=== PATIENT | male | born 1980 | race Two or more races ===

== ENCOUNTER 2025-08-13 11:56 | Inpatient (IN) | payer OTHER ==
[~2025-08-13] VITALS: Ht 180.3 cm; Wt 144.2 kg
--- NOTE | 2025-08-13 14:19 | ED.PDOC ---
GI ASSESSMENT HPI Comments 45-year-old male who comes in with chief complaint of left lower quadrant pain for approximately two days. The patient states that the pain is a 10/10. He states that he has had chronic ulcerative colitis but this flare-up has been the worse. 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 He is having some vomiting and states that he is also having diarrhea with blood in his stool. Chief Complaint: Abdominal Pain Time Seen by MD: 12:02 Primary Care Provider: ? Reviewed Notes: Nurses Notes, Medications, Allergies (NKDA) Allergies: Coded Allergies: NO KNOWN ALLERGIES (Unverified , 07/30/24) Information Source: Patient Mode of Arrival: Ambulatory Timing: Days Duration: Since onset Prehospital treatment: None Quality: Cramping, Stabbing Vomitus: Bilious Stool: Blood Streaked, Watery Severity: Moderate Recent: None Recent Hx of: None Pain Location: LUQ, LLQ Modifying Factors: Nothing Associated sign and symptoms: Nausea, Vomiting, Diarrhea, Abdominal Pain Past Medical History PAST MEDICAL HISTORY: PE Past Medical History (Other): CARLY, protein C deficiency Surgical History: Appendectomy Surgical History (Other): Bilateral hip surgeries, right knee surgery Family History Family History: Unknown Social History Smoker: Non-Smoker Alcohol: Denies ETOH Use Drugs: Denies Drug Use Lives In: Home Constitutional: reports: chills; denies: diaphoresis, fatigue, fever, malaise, sweats, weakness, others EENTM: denies: blurred vision, double vision, ear bleeding, ear discharge, ear drainage, ear pain, ear ringing, eye pain, eye redness, hearing loss, mouth pain, mouth swelling, nasal discharge, nose bleeding, nose congestion, nose pain, photophobia, tearing, throat pain, throat swelling, voice changes, others Respiratory: denies: cough, hemoptysis, orthopnea, SOB at rest, shortness of breath, SOB with excertion, stridor, wheezing, others Cardiovascular: denies: chest pain, dizzy spells, diaphoresis, Dyspnea on exertion, edema, irregular heart beat, left arm pain, lightheadedness, palpitations, PND, syncope, others Gastrointestinal: reports: abdominal pain, blood streaked bowels, diarrhea, nausea, vomiting; denies: abdomen distended, constipated, dysphagia, difficulty swallowing, hematemesis, melena, poor appetite, poor fluid intake, rectal bleeding, rectal pain, others Genitourinary: denies: burning, dysuria, flank pain, frequency, hematuria, incontinence, penile discharge, penile sore, pain, testicle pain, testicle sw elling, urgency, others Neurological: denies: dizziness, fainting, headache, left sided numbness, left sided weakness, numbness, paresthesia, pre-existing deficit, right sided numbness, right sided weakness, seizure, speech problems, tingling, tremors, weakness, others Musculoskeletal: denies: back pain, gout, joint pain, joint swelling, muscle pain, muscle stiffness, neck pain, others Integumetry: denies: bruises, change in color, change in hair/nails, dryness, laceration, lesions, lumps, rash, wounds, others Allergic/Immunocompromised: denies: Difficulty Healing, Frequent Infections, Hives, Itching, others Hematologic/Lymphatic: denies: anemia, blood clots, easy bleeding, easy bruising, swollen glands, others Endocrine: denies: excessive hunger, excessive sweating, excessive thirst, excessive urination, flushing, intolerance to cold, intolerance to heat, unexplained weight gain, unexplained weight loss, others Psychiatric: denies: anxiety, bipolar disorder, depression, hopeless, panic disorder, schizophrenia, sleepless, suicidal, others Physical Exam General Appearance: Moderate Distress HEENT: Normal ENT Inspection, Pharynx Normal, TMs Normal Neck: Full Range of Motion, Non-Tender, Normal, Normal Inspection Respiratory: Chest Non-Tender, Lungs Clear, No Accessory Muscle Use, No Respiratory Distress, Normal Breath Sounds Cardiovascular: No Edema, No JVD, No Murmur, No Gallop, Normal Peripheral Pulses, Regular Rate/Rhythm Breast Exam: Deferred Gastrointestinal: LLQ, LUQ, No Organomegaly, No Pulsatile Mass, Normal Bowel Sounds, Soft, Tenderness Genitalia: Deferred Pelvic: Deferred Rectal: Deferred Extremities: No calf tenderness, Normal capillary refill, Normal inspection, Normal range of motion, Non-tender, No pedal edema Musculoskeletal : Apperance: Normal Neurologic: Alert, operating room technologist II-XII nml as Tested, No Motor Deficits, Normal Affect, Normal Mood, No Sensory Deficits Cerebellar Function: Normal Reflexes: Normal Skin: Dry, Normal Color, Warm Lymphatic: No Adenopathy Was a procedure done? Was a procedure done?: No GI differential Dx Differential Diagnosis: Appendicitis, Gastritis/PUD, Gastroenteritis, Pancreatitis, Electrolyte Imbalance, Food Poisoning X-Ray, Labs, Meds, VS Vital Signs Date Time Temp Pulse Resp B/P (MAP) Pulse Ox O2 Delivery O2 Flow Rate FiO2 08/13/25 16:40 83 19 204/124 08/13/25 16:40 83 19 204/124 08/13/25 15:47 97.8 80 16 175/100 (125) 95 97.8 08/13/25 14:53 87 18 163/103 08/13/25 11:59 97.0 11 20 189/108 97 97.0 Lab Test 08/13/25 15:08 Range/Units White Blood Count 10.8 4.4-10.8 10^3/uL Red Blood Count 4.75 4.5-5.90 10^6/uL Hemoglobin 13.8 13.5-17.5 g/dL Hematocrit 41.0 41.0-53.0 % Mean Corpuscular Volume 86.3 80.0-100.0 fL Mean Corpuscular Hemoglobin 29.1 28.0-32.0 pg Mean Corpuscular Hemoglobin Concent 33.7 32.0-36.0 g/dL Red Cell Distribution Width 15.6 H 11.8-14.3 % Platelet Count 261 140-450 10^3/uL Mean Platelet Volume 7.7 6.9-10.8 fL Neutrophils (%) (Auto) 74.2 37.0-80.0 % Lymphocytes (%) (Auto) 16.2 10.0-50.0 % Monocytes (%) (Auto) 9.0 0.0-12.0 % Eosinophils (%) (Auto) 0.1 0.0-7.0 % Basophils (%) (Auto) 0.5 0.0-2.0 % Neutrophils # (Auto) 8.0 1.6-8.6 10 ^3/uL Lymphocytes # (Auto) 1.8 0.4-5.4 10 ^3/uL Monocytes # (Auto) 1.0 0-1.3 10 ^3/uL Eosinophils # (Auto) 0 0-0.8 10 ^3/uL Basophils # (Auto) 0.1 0-0.2 10 ^3/uL Nucleated Red Blood Cells 0.2 % Sodium Level 145 136-145 mmol/L Potassium Level 3.3 L 3.5-5.1 mmol/L Chloride Level 108 H 98-107 mmol/L Carbon Dioxide Level 28 20-31 mmol/L Anion Gap 9 5-15 Blood Urea Nitrogen 19 9-23 mg/dL Creatinine 1.03 0.700-1.30 mg/dL Glomerular Filtration Rate Calc 90 >90 mL/min BUN/Creatinine Ratio 18.4 10.0-20.0 Serum Glucose 96 74-106 mg/dL Calcium Level 9.2 8.7-10.4 mg/dL Total Bilirubin 0.4 0.2-1.0 mg/dL Aspartate Amino Transferase (AST) 26 13-40 U/L Alanine Aminotransferase (ALT) 24 7-40 U/L Alkaline Phosphatase 84 46-116 U/L Total Protein 7.7 5.7-8.2 g/dL Albumin 4.5 3.2-4.8 g/dL Lipase 36 12-53 U/L Current Medications Medications (Trade) Dose Ordered Sig/Deborah Route Start Time Stop Time Status Last Admin Ondansetron HCl (Zofran) 4 mg ONCE ONCE IV 08/13/25 14:15 08/13/25 14:16 DC 08/13/25 14:53 Hydromorphone HCl (Dilaudid Injection) 1 mg ONCE ONCE IV 08/13/25 14:15 08/13/25 14:16 DC 08/13/25 14:53 Sodium Chloride 500 ml @ 500 mls/hr Q1H ONCE IVB 08/13/25 14:15 08/13/25 15:14 DC 08/13/25 14:54 Hydromorphone HCl (Dilaudid Injection) 1 mg ONCE ONCE IV 08/13/25 16:30 08/13/25 16:31 DC 08/13/25 16:40 IV Hep-Lock was established The patient was given Dilaudid 1 mg IV push The patient was given Zofran 4 mg IV push The CAT scan of the abdomen and pelvis shows: IMPRESSION: No evidence of acute abdominopelvic abnormalities. Colonic diverticulosis without diverticulitis. Right renal cysts. Despite the Dilaudid, the patient is still having pain so we did give him another dose of Dilaudid The patient's CBC and chemistry panel are within normal limits Not going to admit the patient to the hospitalist because the pain is persistent. Images Reviewed?: Images reviewed and evaluated by me Time of 1ST Reevaluation: 14:16 Reevaluation 1ST: Unchanged Patient Education/Counseling: Diagnosis, Treatment, Prognosis Family Education/Counseling: No Family Present SEPSIS Sepsis Screen Date sepsis recognized/suspect: Aug 13, 2025 Time Sepsis recognized/suspect: 1158 Recent Procedure: No On Antibiotic Therapy: No Respiratory Rate >20: No Heart Rate >90: Yes Temp<36 C (96.8 F) or >38.3 C: No SBP <90 or MAP <65 mmHG: No New Acute Mental Status Change: No Is the patient on CPAP, BIPAP,: No Physician Orders Urinalysis (08/13/25 14:09) Ct Ab Pel Wo Con-No Oral Or Iv (08/13/25 14:09) Heplock Iv (08/13/25 14:09) Vital Signs Date Time Temp Pulse Resp B/P (MAP) Pulse Ox O2 Delivery O2 Flow Rate FiO2 08/13/25 16:40 83 19 204/124 08/13/25 16:40 83 19 204/124 08/13/25 15:47 97.8 80 16 175/100 (125) 95 97.8 08/13/25 14:53 87 18 163/103 08/13/25 11:59 97.0 11 20 189/108 97 97.0 Laboratory Tests Test 08/13/25 15:08 White Blood Count 10.8 10^3/uL (4.4-10.8) Medications Medications Dose Ordered Sig/Deborah Route Start Time Stop Time Status Last Admin Dose Admin Hydromorphone HCl 1 mg ONCE ONCE IV 08/13/25 14:15 08/13/25 14:16 DC 08/13/25 14:53 Hydromorphone HCl 1 mg ONCE ONCE IV 08/13/25 16:30 08/13/25 16:31 DC 08/13/25 16:40 Ondansetron HCl 4 mg ONCE ONCE IV 08/13/25 14:15 08/13/25 14:16 DC 08/13/25 14:53 Sodium Chloride 500 ml @ 500 mls/hr Q1H ONCE IVB 08/13/25 14:15 08/13/25 15:14 DC 08/13/25 14:54 Departure 1 Departure Time of Disposition: 16:57 Impression: Primary Impression: Intractable abdominal pain Disposition: ADMITTED INPATIENT Admit to: Med Surg Condition: Fair Critical Care Note Critical Care Time?: No Stability Stability form required: Yes Unstable for transfer: ED Physician Assesment (Clinical assesment) Heart Score Heart Score: Heart Score Response (Comments) Value History N/A 0 EKG N/A 0 Age N/A 0 Risk Factors N/A 0 Troponin N/A 0 Total 0 ETHAN MYERS MD Aug 13, 2025 14:19
[2025-08-13] MEDS: ONDANSETRON HCL 4 MG/2 ML VIAL IV ONE ×2 (14:53→20:43)
[2025-08-13] MEDS: HYDROmorphone HCL 2 MG/ML VL/or syr IV ONE ×2 (14:53→16:40)
[2025-08-13] MEDS: SODIUM CHLORIDE 0.9% 500 ML IVB ONE (14:54)
--- NOTE | 2025-08-13 14:54 | DVH ---
Exam: CT CT AB PEL WO CON-NO ORAL OR IV History: pain Comparison Study: CT CT AB PEL WO CON-NO ORAL OR IV on DOS: 02/24/25, CT CT AB PEL WO CON-NO ORAL OR I V on DOS: 07/30/24, CT ABDOMEN PELVIS WO CONTRAST on DOS: 08/23/23 TECHNIQUE: Multidetector CT of the abdomen and pelvis without IV contrast. Axial, coronal and sagitta l multiplanar reformats were obtained from the axial data set by the technologist. Radiation Dose Information: CT Dose: CTDI volume is 27.88 mGy. Dose-length product is 1560.67 mGy*cm FINDINGS: Bibasilar atelectasis/ scarring. Partially visualized heart is unremarkable. Liver, spleen, gallbladder, pancreas and adrenal glands unremarkable. Lobulated 5.9 cm right renal cyst with a 3.6 cm right renal parapelvic cysts. Otherwise, kidneys,uret ers unremarkable. Limited evaluation of the urinary bladder due to streak artifact from bilateral hip prosthesis. Limited evaluation of the prostate due to streak artifact from bilateral hip prosthesis with the prostate measuring about 3.5 x 4.1 cm. Stomach is unremarkable. Small bowel loops unremarkable. Appendix is not definitely visualized. The appendix appears truncated with hyperdense material adjacent to The appendix which may represent post surgical changes. Colonic diverticulosis without diverticulitis. Small to moderate amount of fecal m aterial within the colon. No evidence of intraperitoneal free air or free fluid. No evidence of aortic aneurysm. IVC filter is noted in place. Right common iliac vein is visualized w ith stent. Tiny fat containing umbilical hernia. Soft tissues are unremarkable. No evidence of acute osseous abn ormalities. IMPRESSION: No evidence of acute abdominopelvic abnormalities. Colonic diverticulosis without diverticulitis. Right renal cysts.
[2025-08-13 15:16] LABS: Hematocrit 41.0 % (41.0-53.0); Hemoglobin 13.8 g/dL (13.5-17.5); Mean Corpuscular Hemoglobin 29.1 pg (28.0-32.0); Mean Corpuscular Volume 86.3 fL (80.0-100.0); Nucleated Red Blood Cells % 0.2 %
[2025-08-13 15:31] LABS: Alanine Aminotransferase 24 U/L (7-40); Albumin 4.5 g/dL (3.2-4.8); Alkaline Phosphatase 84 U/L (46-116); Anion Gap 9 (5-15); BUN/Creatinine Ratio 18.4 (10.0-20.0); Bilirubin, Total 0.4 mg/dL (0.2-1.0); Blood Urea Nitrogen 19 mg/dL (9-23); Calcium 9.2 mg/dL (8.7-10.4); Carbon Dioxide 28 mmol/L (20-31); Glucose 96 mg/dL (74-106); Lipase 36 U/L (12-53); Sodium 145 mmol/L (136-145); Total Protein 7.7 g/dL (5.7-8.2)
[2025-08-13 15:44] LABS: Chloride 108 mmol/L (98-107); Potassium 3.3 mmol/L (3.5-5.1)
[2025-08-13 17:28] LABS: Urine Protein, UAD 1+ (Negative)
[2025-08-13] MEDS: MORPHINE SULFATE 4 MG/ML SYR/VIAL IV ONE (20:44)
[2025-08-13 21:31] LABS: Magnesium 2.1 mg/dL (1.6-2.6)
[2025-08-13] MEDS: SODIUM CHLORIDE 0.9% 1,000 ML IV ONE (21:53)
[2025-08-13] MEDS: PANTOPRAZOLE 40 MG/10 ML VIAL INJ IV SCH (21:55)
[2025-08-13] MEDS: HYDROcodone-ACET 5/325MG TAB PO ONE (21:55)
[2025-08-13 22:13] LABS: INR 1.11 (0.9-1.15); Partial Thromboplastin Time 25.2 SEC (24.5-34.5); Prothrombin Time 11.6 sec (9.3-11.8)
--- NOTE | 2025-08-13 22:22 | DVHHPRES ---
History of Present Illness Resident Creating Document: EARL BLACKWOOD RESIDENT History of Present Illness Mr. Olsen is a 45-year-old male with prior medical history of ulcerative colitis (previously admitted for an exacerbation at this institution in February 2025), protein-C deficiency, and avascular necrosis, who presents today with chief complaint of abdominal pain and bloody diarrhea. The patient states he had onset of bloody diarrhea 2 days ago associated with intermittent sharp lower quadrant pain, 10/10 intensity, aggravated when he goes to the bathroom, without relief. Additionally, he refers febrile sensation, nausea, vomiting, and chills. He denies sick contacts, chest pain, palpitations, consumption of potentially foods, and other symptoms. He states he has been adherent to sulfasalazine. Due to persistence of symptoms he sought care at the emergency department. On evaluation in the ED, the patient was hypertensive, other vitals were stable. Initial labs show CBC within normal range, mild hypokalemia, and mild hypophosphatemia. UDS is positive for fentanyl. UA shows possible UTI. Abdominal CT shows no evidence of acute abdominopelvic abnormalities. The patient was placed on NPO, started on IV fluids and pain regimen. He was admitted for further work up and monitoring. 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 HEENT: Denies changes in vision and hearing. Respiratory: Denies shortness of breath and cough Cardiovascular: Denies chest discomfort or palpitations GI: Refers abdominal pain, abdominal bloating, and bloody diarrhea : Denies dysuria and urinary frequency. Musculoskeletal: Denies symptoms Skin: Denies rash and pruritus. Neurological: denies dizziness headache vision or hearing problems Allergies: Coded Allergies: NO KNOWN ALLERGIES (Unverified , 07/30/24) Medications Current Medications Medications Dose Ordered Sig/Deborah Route Start Time Stop Time Status Last Admin Dose Admin Pantoprazole Sodium 40 mg DAILY IV 08/13/25 21:30 08/13/25 21:55 40 MG Exam Vital Signs Vital Signs Date Time Temp Pulse Resp B/P (MAP) Pulse Ox O2 Delivery O2 Flow Rate FiO2 08/13/25 20:44 80 20 133/100 08/13/25 20:18 95 Room Air 08/13/25 20:09 0 21 08/13/25 19:10 98.2 98.2 Exam General: The patient alert and oriented in person place and time. Patient following commands HEENT: Normocephalic, atraumatic, normal reactive pupils, EOM intact, pink conjunctiva, pink moist mucous membrane Respiratory/pulmonary: Bilateral chest expansion, no pain on palpation of chest wall, clear lungs bilaterally, vesicular murmurs present in almost all lung espinoza, no associated crackles or wheezes. Cardiovascular: Normal RRR, normal S1 and S2, no murmurs Abdomen: Abdomen nondistended, normal bowel sounds, soft, there is pain to palpation in lower abdominal quadrants, worse in LLQ, no palpable masses. Extremities: Presence of large lump near right shoulder, is mobile and non p ainful to palpation, bilateral pitting lower extremity edema +1, normal pulses Skin: No rashes or pruritus, there is no sacral edema present at this time. Neurological: Intact cranial nerves with no focal neurologic deficits Labs/Xrays Labs Test 08/13/25 21:35 08/13/25 17:00 08/13/25 15:08 Range/Units Prothrombin Time 11.6 9.3-11.8 sec Prothrombin Time INR 1.11 0.9-1.15 Activated Partial Thromboplast Time 25.2 24.5-34.5 SEC Lactic Acid Level 1.0 0.4-2.0 mmol/L Urine Color Yellow Yellow Urine Clarity Turbid H Clear Urine pH 6.0 5.0-9.0 Urine Specific [place] 1.035 1.001-1.035 Urine Protein 1+ H Negative Urine Ketones Negative Negative Urine Blood 2+ H Negative /uL Urine Nitrite Negative Negative Urine Bilirubin Negative Negative Urine Urobilinogen 4 H Negative mg/dL Urine Leukocyte Esterase Trace Negative /uL Urine RBC 15 0 - 3 /hpf Urine Microscopic WBC 8 H 0-3 /HPF Urine Squamous Epithelial Cells Few <5 /hpf Urine Calcium Oxalate Crystals Many None Seen Urine Bacteria None seen None Seen /hpf Urine Hyaline Casts Few 0 - 2 /lpf Urine Mucus Moderate None Seen Urine Glucose Normal Normal mg/dL White Blood Count 10.8 4.4-10.8 10^3/uL Red Blood Count 4.75 4.5-5.90 10^6/uL Hemoglobin 13.8 13.5-17.5 g/dL Hematocrit 41.0 41.0-53.0 % Mean Corpuscular Volume 86.3 80.0-100.0 fL Mean Corpuscular Hemoglobin 29.1 28.0-32.0 pg Mean Corpuscular Hemoglobin Concent 33.7 32.0-36.0 g/dL Red Cell Distribution Width 15.6 H 11.8-14.3 % Platelet Count 261 140-450 10^3/uL Mean Platelet Volume 7.7 6.9-10.8 fL Neutrophils (%) (Auto) 74.2 37.0-80.0 % Lymphocytes (%) (Auto) 16.2 10.0-50.0 % Monocytes (%) (Auto) 9.0 0.0-12.0 % Eosinophils (%) (Auto) 0.1 0.0-7.0 % Basophils (%) (Auto) 0.5 0.0-2.0 % Neutrophils # (Auto) 8.0 1.6-8.6 10 ^3/uL Lymphocytes # (Auto) 1.8 0.4-5.4 10 ^3/uL Monocytes # (Auto) 1.0 0-1.3 10 ^3/uL Eosinophils # (Auto) 0 0-0.8 10 ^3/uL Basophils # (Auto) 0.1 0-0.2 10 ^3/uL Nucleated Red Blood Cells 0.2 % Erythrocyte Sedimentation Rate 18 0-20 mm/hr Sodium Level 145 136-145 mmol/L Potassium Level 3.3 L 3.5-5.1 mmol/L Chloride Level 108 H 98-107 mmol/L Carbon Dioxide Level 28 20-31 mmol/L Anion Gap 9 5-15 Blood Urea Nitrogen 19 9-23 mg/dL Creatinine 1.03 0.700-1.30 mg/dL Glomerular Filtration Rate Calc 90 >90 mL/min BUN/Creatinine Ratio 18.4 10.0-20.0 Serum Glucose 96 74-106 mg/dL Hemoglobin A1c 5.5 <5.7 % A1C Calcium Level 9.2 8.7-10.4 mg/dL Phosphorus Level 2.0 L 2.4-5.1 mg/dL Magnesium Level 2.1 1.6-2.6 mg/dL Total Bilirubin 0.4 0.2-1.0 mg/dL Aspartate Amino Transferase (AST) 26 13-40 U/L Alanine Aminotransferase (ALT) 24 7-40 U/L Alkaline Phosphatase 84 46-116 U/L C-Reactive Protein High Sensitivity 0.73 <1.0 mg/dL Total Protein 7.7 5.7-8.2 g/dL Albumin 4.5 3.2-4.8 g/dL Lipase 36 12-53 U/L Thyroid Stimulating Hormone (TSH) 4.15 0.55-4.78 uIU/mL SEPSIS Sepsis Screen Date sepsis recognized/suspect: Aug 13, 2025 Time Sepsis recognized/suspect: 2015 Recent Procedure: No On Antibiotic Therapy: No Respiratory Rate >20: No Heart Rate >90: No Temp<36 C (96.8 F) or >38.3 C: No SBP <90 or MAP <65 mmHG: No New Acute Mental Status Change: No Is the patient on CPAP, BIPAP,: No Physician Orders Complete Blood Count (08/14/25 04:00) Basic Metabolic Panel (08/14/25 04:00) Vitamin B12 (08/13/25 20:55) Vitamin D, 25-Hydroxy (08/13/25 20:55) Drug Screen (08/13/25 20:55) Blood Culture (08/13/25 20:55) Clostridium Difficile Toxin (08/13/25 20:55) Stool Wbc (08/13/25 20:55) Admit (08/13/25 21:24) Allergies (08/13/25 21:24) Code Status (08/13/25 21:24) Condition: Stable (08/13/25 21:24) Stat Ekg For Chest Pain (08/13/25 21:24) Notify Md Of Changes From Base (08/13/25 21:24) Emergency Dysrhythmia Protocol (08/13/25 21:24) Rhythm Strips Once Every Shift (08/13/25 21:24) Sodium Chloride 0.9% (08/13/25 21:30) Pantoprazole (Protonix) (08/13/25 21:30) Vital Signs Date Time Temp Pulse Resp B/P (MAP) Pulse Ox O2 Delivery O2 Flow Rate FiO2 08/13/25 20:44 80 20 133/100 08/13/25 20:18 80 20 95 Room Air 08/13/25 20:17 80 20 95 Room Air 08/13/25 20:17 80 20 133/100 08/13/25 20:09 Room Air* 0 21 08/13/25 19:10 98.2 80 20 133/100 (111) 95 98.2 08/13/25 16:40 83 19 204/124 08/13/25 16:40 83 19 204/124 08/13/25 15:47 97.8 80 16 175/100 (125) 95 97.8 08/13/25 14:53 87 18 163/103 Laboratory Tests Test 08/13/25 15:08 08/13/25 21:35 White Blood Count 10.8 10^3/uL (4.4-10.8) Lactic Acid Level 1.0 mmol/L (0.4-2.0) Medications Medications Dose Ordered Sig/Deborah Route Start Time Stop Time Status Last Admin Dose Admin Acetaminophen/ Hydrocodone Bitart 1 tab ONCE ONCE PO 08/13/25 21:45 08/13/25 21:46 DC 08/13/25 21:55 1 TAB Hydromorphone HCl 1 mg ONCE ONCE IV 08/13/25 14:15 08/13/25 14:16 DC 08/13/25 14:53 1 MG Hydromorphone HCl 1 mg ONCE ONCE IV 08/13/25 16:30 08/13/25 16:31 DC 08/13/25 16:40 1 MG Morphine Sulfate 4 mg ONCE ONCE IV 08/13/25 20:45 08/13/25 20:46 DC 08/13/25 20:44 4 MG Ondansetron HCl 4 mg ONCE ONCE IV 08/13/25 14:15 08/13/25 14:16 DC 08/13/25 14:53 4 MG Ondansetron HCl 4 mg ONCE ONCE IV 08/13/25 20:45 08/13/25 20:46 DC 08/13/25 20:43 4 MG Pantoprazole Sodium 40 mg DAILY IV 08/13/25 21:30 08/13/25 21:55 40 MG Sodium Chloride 500 ml @ 500 mls/hr Q1H ONCE IVB 08/13/25 14:15 08/13/25 15:14 DC 08/13/25 14:54 500 MLS/HR Assessment/Plan Assessment/Plan Assessment and Plan: Intractable abdominal pain secondary to Ulcerative Colitis Exacerbation Dehydration due to above - NS bolus 500 cc once - NS bolus 150 cc once - NS maintenance IV 150 cc/hr - Dilaudid 1 mg IV once x 2 - Dilaudid 0.25 mg IV q 3 hrs PRN, discontinued - Dilaudid 0.50 mg IV q 3 hrs PRN - Mesalamine 4 g once rectal - Mesalamine 800 mg PO TID - Morphine 4 mg IV once - Zofran 4 mg IV once - Patient is NPO - Stool samples for cultures and C diff testing have been taken - Steroids being held until C diff ruled out Hypertensive Urgency - Monitor BP - Manage pain Hypokalemia, 3.3 -Potassium 40 mEq IV Hypophosphatemia, 2.0 -Replenish Diverticulosis without Diverticulitis - Abdominal CT: Colonic diverticulosis without diverticulitis. Right Renal Cyst - Abdominal CT: Lobulated 5.9 cm right renal cyst with a 3.6 cm right renal parapelvic cysts Fentanyl use - I have counseled the patient on the complete cessation of illicit drug use for over 12 minutes Protein C deficiency - Warfarin is currently being held - Enoxaparin 140 mg q 12 hours SC (1 mg/kg) History of bilateral avascular necrosis, s/p bilateral total hip replacement DVT ruled out - Bilateral venous duplex: No right or left femoropopliteal venous thrombosis Morbid obesity, 44.3 kg/m2 - I have counseled the patient on healthy lifestyle modifications. Diet: NPO DVT prophylaxis: Enoxaparin 1mg/kg q12 hours GI prophylaxis: Protonix 40 mg IV daily Case discussed with Dr. Boyd Goals of care discussed with the patient for over 25 minutes. FULL CODE. Plan discussed with: Patient, Other (Nurses) My Orders Orders - EARL BLACKWOOD RESIDENT Procedure Category Date Status Time Complete Blood Count LAB 08/14/25 Verified 04:00 Basic Metabolic Panel LAB 08/14/25 Verified 04:00 Vitamin B12 LAB 08/13/25 In Process 20:55 Vitamin D, 25-Hydroxy LAB 08/13/25 In Process 20:55 Drug Screen LAB 08/13/25 In Process 20:55 Blood Culture JOSE 08/13/25 In Process 20:55 Clostridium Difficile JOSE 08/13/25 Logged Toxin 20:55 Stool Wbc LAB 08/13/25 Logged 20:55 Admit ADMIT 08/13/25 Transmitted 21:[address] [facility] 08/13/25 In Process 21:24 Code Status CODE 08/13/25 Transmitted 21:24 Condition: Stable DAVID 08/13/25 In Process 21:[address] Chest [facility] 08/13/25 In Process Pain 21:24 Notify Md Of Changes [facility] 08/13/25 In Process From Base 21:[address] [facility] 08/13/25 In Process Protocol 21:[address] [facility] 08/13/25 In Process Every Shift 21:24 Sodium Chloride 0.9% PHA 08/13/25 In Process 21:30 Pantoprazole PHA 08/13/25 In Process (Protonix) 21:30 Date of Service: Aug 13, 2025 Billing Provider: SYLWIA BOYD MD Common Visit Codes: [id number] INP/OBS CARE (HIGH) Secondary Visit Codes: [id number] CARE PLAN 30 MINUTES EARL BLACKWOOD RESIDENT Aug 13, 2025 22:22
[2025-08-13 22:24] LABS: Opiate Scree,Urine Pos (NEGATIVE)
[2025-08-13 22:26] LABS: Amphetamine Screen, Urine Neg (NEGATIVE); Barbiturate Scree,Urine Neg (NEGATIVE); Benzodiazephine Screen, Urine Neg (NEGATIVE); Cannabinoid Screen, Urine Neg (NEGATIVE); Cocaine Screen, Urine Neg (NEGATIVE); Phencyclidine Screen, Urine Neg (NEGATIVE)
[2025-08-14] MEDS: POTASSIUM PHOSPHATE 22 MEQ in SODIUM CHL 0.9% 100 ML IV ONE (01:00)
--- NOTE | 2025-08-14 01:23 | DVH ---
Bilateral lower extremity venous duplex Clinical History: Bilateral leg swelling Comparison: US RT LOWER DVT on DOS: 02/24/25, US LOWER EXTREMITY VEINS BILATERAL on DOS: 11/07/23, LE VENOUS IMAGING COMP BILATERAL on DOS: 07/30/20 Technique: Duplex Doppler evaluation of the deep venous systems of both lower extremities from the common femora l veins to the popliteal veins including color Doppler and spectral/pulsed waveform analysis was perf ormed. Findings: RIGHT SIDE: The common femoral vein demonstrates appropriate compressibility and waveform variability. There is compressibility/patency of the great saphenous vein at the proximal thigh. The femoral vein demonstrates appropriate compressibility and waveform variability. The deep femoral vein demonstrates appropriate compressibility and waveform variability. The popliteal vein demonstrates appropriate compressibility and waveform variability. There is normal compressibility at the tibioperoneal trunk. LEFT SIDE: The common femoral vein demonstrates appropriate compressibility and waveform variability. There is compressibility/patency of the great saphenous vein at the proximal thigh. The femoral vein demonstrates appropriate compressibility and waveform variability. The deep femoral vein demonstrates appropriate compressibility and waveform variability. The popliteal vein demonstrates appropriate compressibility and waveform variability. There is normal compressibility at the tibioperoneal trunk. Impression: 1. No right or left femoropopliteal venous thrombosis.
[2025-08-14] MEDS: MESALAMINE 4 GM/60 ML RC PR ONE (02:05)
[2025-08-14] MEDS: MESALAMINE 400mg Delayed Release Cap PO ONE (02:06)
[2025-08-14] MEDS: POTASSIUM CHL 20MEQ/100ML 100 ML IV SCH ×2 (02:06→03:30)
[2025-08-14] MEDS: SODIUM CHLORIDE 0.9% 1,000 ML IV SCH (02:06)
[2025-08-14] MEDS: HYDROmorphone HCL 2 MG/ML VL/or syr IV PRN (02:11)
[2025-08-14] MEDS: ENOXAPARIN SOD 100 MG/1 ML SYRINGE SC SCH (02:17)
[2025-08-14] MEDS ORDERED: HYDROmorphone HCL 2 MG/ML VL/or syr IV PRN (03:30)
[2025-08-14 03:45] VITALS: BP 148/83; PULSE 76; RESP 18; TEMP 97.8; O2SAT 94
[2025-08-14] MEDS ORDERED: COURX10 GT (04:06)
[2025-08-14] MEDS ORDERED: SULF500T57 PO (04:08)
[2025-08-14] MEDS: HYDROmorphone HCL 2 MG/ML VL/or syr IV ONE (04:22)
[2025-08-14] MEDS: MESALAMINE 400mg Delayed Release Cap PO SCH (05:16)
--- NOTE | 2025-08-14 07:50 | DVH ---
Exam: US RIGHT UPPER EXT. Date: 08/14/2025 06:49 AM Clinical History: Eval lesion Comparison: US RT LOWER DVT on DOS: 02/24/25 Findings: Targeted sonographic evaluation of the soft tissues of the right shoulder lump was obtained utilizi ng grayscale and color Doppler imaging. 3.7 x 1.6 x 3.7 cm hyperechoic mass in the right anterior shoulder which could represent a lipoma. M RI recommended. IMPRESSION: 3.7 x 1.6 x 3.7 cm hyperechoic mass in the right anterior shoulder which could represent a lipoma. M RI recommended. END IMPRESSION:
[2025-08-14 09:00] VITALS: BP 136/87; PULSE 72; RESP 18; TEMP 98; O2SAT 96
--- NOTE | 2025-08-14 14:49 | DVHDSRES ---
Discharge Summary Date of Admission Resident Creating Document: EARL BLACKWOOD RESIDENT Aug 13, 2025 at 21:24 Date of Discharge: Aug 14, 2025 Admitting Diagnosis Acute exacerbation of ulcerative colitis Labs/Diagnostic Data: Laboratory Results Test 08/13/25 21:35 08/13/25 17:00 08/13/25 15:08 Prothrombin Time 11.6 sec (9.3-11.8) Prothrombin Time INR 1.11 (0.9-1.15) Activated Partial Thromboplast Time 25.2 SEC (24.5-34.5) Lactic Acid Level 1.0 mmol/L (0.4-2.0) Urine Color Yellow (Yellow) Urine Clarity Turbid (Clear) Urine pH 6.0 (5.0-9.0) Urine Specific Hardin 1.035 (1.001-1.035) Urine Protein 1+ (Negative) Urine Ketones Negative (Negative) Urine Blood 2+ /uL (Negative) Urine Nitrite Negative (Negative) Urine Bilirubin Negative (Negative) Urine Urobilinogen 4 mg/dL (Negative) Urine Leukocyte Esterase Trace /uL (Negative) Urine RBC 15 /hpf (0 - 3) Urine Microscopic WBC 8 /HPF (0-3) Urine Squamous Epithelial Cells Few /hpf (<5) Urine Calcium Oxalate Crystals Many (None Seen) Urine Bacteria None seen /hpf (None Seen) Urine Hyaline Casts Few /lpf (0 - 2) Urine Mucus Moderate (None Seen) Urine Glucose Normal mg/dL (Normal) Urine Opiates Screen Pos (NEGATIVE) Urine Fentanyl Screen Pos (NEGATIVE) Urine Barbiturates Screen Neg (NEGATIVE) Urine Phencyclidine Screen Neg (NEGATIVE) Urine Amphetamines Screen Neg (NEGATIVE) Urine Benzodiazepines Screen Neg (NEGATIVE) Urine Cocaine Screen Neg (NEGATIVE) Urine Cannabinoids Screen Neg (NEGATIVE) White Blood Count 10.8 10^3/uL (4.4-10.8) Red Blood Count 4.75 10^6/uL (4.5-5.90) Hemoglobin 13.8 g/dL (13.5-17.5) Hematocrit 41.0 % (41.0-53.0) Mean Corpuscular Volume 86.3 fL (80.0-100.0) Mean Corpuscular Hemoglobin 29.1 pg (28.0-32.0) Mean Corpuscular Hemoglobin Concent 33.7 g/dL (32.0-36.0) Red Cell Distribution Width 15.6 % (11.8-14.3) Platelet Count 261 10^3/uL (140-450) Mean Platelet Volume 7.7 fL (6.9-10.8) Neutrophils (%) (Auto) 74.2 % (37.0-80.0) Lymphocytes (%) (Auto) 16.2 % (10.0-50.0) Monocytes (%) (Auto) 9.0 % (0.0-12.0) Eosinophils (%) (Auto) 0.1 % (0.0-7.0) Basophils (%) (Auto) 0.5 % (0.0-2.0) Neutrophils # (Auto) 8.0 10 ^3/uL (1.6-8.6) Lymphocytes # (Auto) 1.8 10 ^3/uL (0.4-5.4) Monocytes # (Auto) 1.0 10 ^3/uL (0-1.3) Eosinophils # (Auto) 0 10 ^3/uL (0-0.8) Basophils # (Auto) 0.1 10 ^3/uL (0-0.2) Nucleated Red Blood Cells 0.2 % Erythrocyte Sedimentation Rate 18 mm/hr (0-20) Sodium Level 145 mmol/L (136-145) Potassium Level 3.3 mmol/L (3.5-5.1) Chloride Level 108 mmol/L (98-107) Carbon Dioxide Level 28 mmol/L (20-31) Anion Gap 9 (5-15) Blood Urea Nitrogen 19 mg/dL (9-23) Creatinine 1.03 mg/dL (0.700-1.30) Glomerular Filtration Rate Calc 90 mL/min (>90) BUN/Creatinine Ratio 18.4 (10.0-20.0) Serum Glucose 96 mg/dL (74-106) Hemoglobin A1c 5.5 % A1C (<5.7) Calcium Level 9.2 mg/dL (8.7-10.4) Phosphorus Level 2.0 mg/dL (2.4-5.1) Magnesium Level 2.1 mg/dL (1.6-2.6) Total Bilirubin 0.4 mg/dL (0.2-1.0) Aspartate Amino Transferase (AST) 26 U/L (13-40) Alanine Aminotransferase (ALT) 24 U/L (7-40) Alkaline Phosphatase 84 U/L (46-116) C-Reactive Protein High Sensitivity 0.73 mg/dL (<1.0) Total Protein 7.7 g/dL (5.7-8.2) Albumin 4.5 g/dL (3.2-4.8) Lipase 36 U/L (12-53) Vitamin B12 Level 381 pg/mL (211-911) Vitamin D 25-Hydroxy 21.9 ng/mL (30.0-100) Thyroid Stimulating Hormone (TSH) 4.15 uIU/mL (0.55-4.78) Other Laboratory Tests 08/13/25 15:08 Brief Hx & Hospital Course: Mr. Olsen is a 45-year-old male with prior medical history of ulcerative colitis (previously admitted for an exacerbation at this institution in February 2025), protein-C deficiency, and avascular necrosis, who presents today with chief complaint of abdominal pain and bloody diarrhea. The patient states he had onset of bloody diarrhea 2 days ago associated with intermittent sharp lower quadrant pain, 10/10 intensity, aggravated when he goes to the bathroom, without relief. Additionally, he refers febrile sensation, nausea, vomiting, and chills. He denies sick contacts, chest pain, palpitations, consumption of potentially foods, and other symptoms. He states he has been adherent to sulfasalazine. Due to persistence of symptoms he sought care at the emergency department. On evaluation in the ED, the patient was hypertensive, other vitals were stable. Initial labs show CBC within normal range, mild hypokalemia, and mild hypophosphatemia. UDS is positive for fentanyl, opiates.. UA shows possible UTI. Abdominal CT shows no evidence of acute abdominopelvic abnormalities. The patient was placed on NPO, started on IV fluids and pain regimen. He was admitted for further work up and monitoring. Doppler study- No right or left femoropopliteal venous thrombosis. Ultrasound of the right upper extremity- 3.7 x 1.6 x 3.7 cm hyperechoic mass in the right anterior shoulder which could represent a lipoma. Patient left AMA even after explaining the consequence of leaving hospital with the treatment. Patients condition was undetermined on discharge. Condition at Discharge: Undetermined Final Diagnosis/Problems List Intractable abdominal pain secondary to Ulcerative Colitis Exacerbation Hypertensive Urgency Hypokalemia Hypophosphatemia History of pulmonary embolism, IVC filter, stent in the iliac artery as per patient Bilateral leg edema Diverticulosis without Diverticulitis Right Renal Cyst Lipoma UDS positive for Fentanyl Protein C deficiency Discharge Disposition: AMA Discharge Instruct/Medications Diet: See Comment Diet comment: Patient's left AMA Follow Up/Referral: Patient left AMA Medications: Patient left AMA Scheduled Sulfasalazine (Sulfasalazine), 500 MG PO TID, (Reported) Warfarin Sodium (Warfarin Per Rx 10MG Protocol), 10 MG GT TID, (Reported) Discharge Statement: "Patient was advised to return to the ER or call 911 if any headaches, dizziness, shortness of breath, chest pain, abdominal pain, bleeding, fevers, or worsening of medical condition. Patient was counseled about treatment plan, medications, possible side effects, patientverbalized understanding. All questions were answered to the best of my ability. This discharge took greater then 30 minutes in planning, reviewing documentation, counseling the patient, and discussing with other team members." ASSESSMENT ASSESSMENT Assessment Billing Provider: SYLWIA HENRY MD Common Visit Codes: 48656-YZC/OBS DISCH DAY >30min TEJAS MEI RESIDENT Aug 14, 2025 14:49 SYLWIA HENRY MD Aug 14, 2025 18:26
== END 2025-08-14 11:50 | disposition left against medical advice (07) | DRG 245 ==
LOC: ER 11:56 → OVERFLOW 21:24 → WEST WING 08-14 03:32
PROVIDERS: ADMIT Student in an Organized Health Care Education/Training Program; ATTEND Student in an Organized Health Care Education/Training Program
DX: K51.90 Ulcerative colitis, unspecified, without complications (principal); E83.39 Other disorders of phosphorus metabolism; I16.0 Hypertensive urgency; E86.0 Dehydration; K57.30 Diverticulosis of large intestine without perforation or abscess without bleeding; N28.1 Cyst of kidney, acquired; E87.6 Hypokalemia; D17.9 Benign lipomatous neoplasm, unspecified; Z96.643 Presence of artificial hip joint, bilateral; Z53.29 Procedure and treatment not carried out because of patient's decision for other reasons; E66.01 Morbid (severe) obesity due to excess calories; Z68.41 Body mass index [BMI] 40.0-44.9, adult; Z90.49 Acquired absence of other specified parts of digestive tract; Z86.711 Personal history of pulmonary embolism
CPT/HCPCS: 36415; 74176; 76881; 80053; 80307; 81001; 82306; 82607; 83036; 83605; 83690; 83735; 84100; 84443; 85025; 85610; 85652; 85730; 86141; 87040; 87086; 93970; 96374; 96375; G0378; J2405; J2470; J3480